=== PATIENT | male | born 1950 | race Caucasian/White ===

== ENCOUNTER → 2019-11-26 09:17 | Outpatient (BNVA) | payer OTHER, SELFPAY | PROVIDERS: Family Provider Internal Medicine; PCP Internal Medicine; Referring Provider Emergency Medicine Emergency Medical Services; Visit Provider Orthopaedic Surgery | DX: M25.561 Pain in right knee (principal); M25.562 Pain in left knee; M23.306 Other meniscus derangements, unspecified meniscus, right knee; M23.307 Other meniscus derangements, unspecified meniscus, left knee | CPT/HCPCS: 73560; 73565 ==

== ENCOUNTER → 2019-12-16 15:02 | Outpatient (BNVA) | payer OTHER, SELFPAY | PROVIDERS: Family Provider Internal Medicine; PCP Internal Medicine; Referring Provider Emergency Medicine Emergency Medical Services; Visit Provider Podiatrist Foot & Ankle Surgery | DX: M79.672 Pain in left foot (principal); M20.12 Hallux valgus (acquired), left foot | CPT/HCPCS: 73630 ==

== ENCOUNTER 2019-12-16 15:47 | Outpatient (CLI) | payer OTHER, SELFPAY | END 2019-12-16 15:48 | disposition home or self-care (01) | LOC: SPT 15:47 | PROVIDERS: Family Provider Internal Medicine; PCP Internal Medicine; Visit Provider Podiatrist Foot & Ankle Surgery | DX: Z46.89 Encounter for fitting and adjustment of other specified devices (principal); M79.672 Pain in left foot | CPT/HCPCS: 97760; L4397 ==

== ENCOUNTER → 2019-12-28 13:13 | Outpatient (BNVA) | payer OTHER, SELFPAY | PROVIDERS: Family Provider Internal Medicine; PCP Internal Medicine; Referring Provider Orthopaedic Surgery; Visit Provider Nurse Practitioner Family | DX: R35.1 Nocturia (principal); R39.9 Unspecified symptoms and signs involving the genitourinary system; Z12.5 Encounter for screening for malignant neoplasm of prostate | CPT/HCPCS: 81001 ==

== ENCOUNTER 2020-02-05 06:00 | Outpatient (RCR) | payer OTHER, SELFPAY | END 2020-02-22 23:59 | disposition home or self-care (01) | LOC: SPT 06:00 | PROVIDERS: PCP Internal Medicine; Visit Provider Podiatrist Foot & Ankle Surgery | DX: M76.62 Achilles tendinitis, left leg (principal) | CPT/HCPCS: 97035; 97140; 97161 ==

== ENCOUNTER 2020-02-23 06:00 | Outpatient (RCR) | payer OTHER, SELFPAY | END 2020-03-04 23:00 | disposition home or self-care (01) | LOC: SPT 06:00 | PROVIDERS: PCP Internal Medicine; Visit Provider Podiatrist Foot & Ankle Surgery | DX: M76.62 Achilles tendinitis, left leg (principal) | CPT/HCPCS: 97035; 97140 ==

== ENCOUNTER → 2020-03-04 08:53 | Outpatient (BNVA) | payer OTHER, SELFPAY | PROVIDERS: PCP Internal Medicine; Visit Provider Internal Medicine | DX: Z11.59 Encounter for screening for other viral diseases (principal) | CPT/HCPCS: 87635 ==

== ENCOUNTER 2020-03-07 09:53 | Observation (INO) | payer OTHER, SELFPAY ==
[2020-03-04 09:52] VITALS: BMI 39.9
--- NOTE | 2020-03-04 09:58 | ECG_ITS ---
[facility] Test Date: 2020-03-04 Pat Name: Reggie Smith Department: Room: Gender: Male Health Care / Medical Job Titles: : 1950 Requested By: Ruth Stone Order Number: [id number] Dayo MD: Chester Hernandez M.D. Measurements Intervals [place] Rate: 108 P: 30 NC: 146 QRS: 24 QRSD: 106 T: 7 QT: 326 QTc: 437 Interpretive Statements SINUS TACHYCARDIA POSSIBLE LEFT ATRIAL ENLARGEMENT [-0.1mV P WAVE IN V1/V2] ABNORMAL RHYTHM ECG Compared to ECG 05/02/2018 17:00:33 Myocardial infarct finding no longer present Electronically Signed On 03-04-2020 15:05:45 CDT by Chester Hernandez M.D. [id number]
--- NOTE | 2020-03-04 10:14 | ANES.PREANE2 ---
Pre-Anesthetic Assessment Pre-Anesthetic Assessment: Height/Weight: Height 1.83 m Weight 133.356 kg Preop Diagnosis: left knee pain Proposed Procedure: Operation Date: 03/07/20 07:00 Proposed Procedures p Total Knee Arthroplasty 71469 M17.0(Left) - Blaise Cronin MD Familial anesthetic complications: none Was Beta Jeannine taken within 24 hours: N/A Social: Social History: No alcohol and No tobacco Exam: Pre-Anes Outpt Exam: alert, oriented x 3, clear to auscultation bilaterally and regular rate & rhythm Airway: Submandibular: WNL Cervical ROM: WNL MP: 2 Dentition: False Pulmonary: Pulmonary: None reported CV/HEM: CV/HEM: CAD ([place] angioplasty 4 years ago. Pt denies any symptoms since), CHF and HTN Comments: Pt seen Dr Roca last month for cardiac clearance : : None reported Hepatic: Hepatic: None reported GI: GI: None reported Metabolic: Metabolic: None reported Musc/skel: Musc/skel: OA/DJD Neuropsych: Neuropsych: None reported Anesthetic Plan: ASA status: 3 Anesthesia: Anesthesia Evaluation, Eval. for regional block (SAB), General and Regional (specify below) Risk of > 500 ml blood loss (7ml/kg in children): Yes, adequate IV access and fluids planned PFSH Anesthesia PFSH: Medical History Bilateral knee pain Diastolic heart failure History of non-ST elevation myocardial infarction (NSTEMI) HTN (hypertension) Hyperlipidemia Nocturia Social History Smoking and tobacco status: former smoker Alcohol intake: unknown Adopted: No Caregiver/support person: No Lives independently: No Household members: spouse Marital status: Current occupational status: retired History of recent travel: No Data Anesthesia CBC & Chem 7: 03/04/20 10:08 03/04/20 10:08 Cardiac Studies: No Data to Display
[2020-03-04 10:27] LABS: Basophils # 0.1 10^3/uL (0.0-0.1); Eosinophils # 0.2 10^3/uL (0.0-0.8); Eosinophils % 1.9 %; Hematocrit 49.2 % (42.0-52.0); Hemoglobin 15.7 g/dL (11.7-16.6); Lymphocytes # 2.1 10^3/uL (0.8-4.8); Lymphocytes % 25.4 %; Mean Corpuscular HGB Conc 31.9 g/dL (30.0-36.0); Mean Corpuscular Hemoglobin 29.6 pg (28.0-34.0); Mean Corpuscular Volume 92.7 fL (80-94); Mean Platelet Volume 9.2 fL (7.4-10.4); Monocytes # 1.2 10^3/uL (0.2-0.9); Monocytes % 14.6 %; Neutrophils # 4.58 10^3/uL (1.8-7.7); Neutrophils % 56.6 %; Nucleated Red Blood Cells % 0 %; Platelet Count 250 10^3/cmm (130-400); Red Blood Count 5.31 10^6/uL (4.1-5.3); Red Cell Distribution Width 14.2 % (12.1-15.1); White Blood Count 8.1 10^3/uL (4.0-10.0)
[2020-03-04 10:56] LABS: Anion Gap 16.3 (5-19); Blood Urea Nitrogen 21 mg/dL (8-23); Carbon Dioxide 22 mmol/L (22-29); Chloride 106 mmol/L (98-107); Glucose 96 mg/dL (65-115); Osmolality Calculated 286 mOsm/kg (285-295); Potassium 4.3 mmol/L (3.5-5.1); Sodium 140 mmol/L (136-145)
[2020-03-07] VITALS (17 sets, daily range): BP systolic 92–148; BP diastolic 62–105; PULSE 73–106; RESP 11–31; TEMP 34.4–36.5; O2SAT 92–98
[2020-03-07] MEDS: sodium chloride 0.9% 1,000 ML 30 ML IV (06:09)
--- NOTE | 2020-03-07 06:32 | P.ANESUD_ITS ---
Pre-Anesthetic Update Pre-Anesthetic Assessment: Date of Surgery/Procedure: 03/07/20 Preop Megha gnosis: left knee pain Proposed Procedure: Operation Date: 03/07/20 07:00 Proposed Procedures p Total Knee Arthroplasty 62592 M17.0(Left) - Blaise Cronin MD Any changes to Pre-Anesthetic Assessment?: No Changes from Pre-Anesthetic Assessment: off plavix since last saturday (8 days) Last Intake: Intake Last Liquid Date 03/06/20 Last Liquid Time 21:00 Last Solid Date 03/06/20 Last Solid Time 21:00 Vitals: Temperature 97.7 F 03/07/20 05:49 Temperature Source Temporal Artery S can 03/07/20 05:49 Pulse Rate 106 H 03/07/20 05:49 Respiratory Rate 18 03/07/20 05:49 Blood Pressure 147/105 03/07/20 05:49 Blood Pressure Nga n 119 03/07/20 05:49 Pulse Oximetry 97 03/07/20 05:49 Oxygen Delivery Me thod 03/07/20 05:49 Exam: Pre-Anes Outpt Exam: alert, oriented x 3, clear to auscultation bilaterally and regular rate & rhythm Other Pertinent Information: Other Pertinent Information: patient ok with spinal Cardiac Studies: No Data to Display
--- NOTE | 2020-03-07 06:34 | ANES.PROC ---
Anesthesia Procedures Procedure/Date: 03/07/20 Nerve Block ^: Nerve Block 1: Main Anesthesia: general anesthesia Time Out Performed: Yes Consent: requested by attending/covering physician, from patient, risks and benefits reviewed and patient agrees to proceed Nerve block location: adductor canal (L) Anesthesia monitors applied: pulse oximetry, EKG and oxygen Nerve block position: supine Anesthetic Used: ropivicaine 0.5% and with decadron (4 mg) Amount of anesthesia used (mL): 30 Ultrasound used to: recognize landmarks Interscalene/Femoral BLK: 4 stimuplex 21 g needle used for position and inplane approach, visualize local anesthetic spread and no vascular puncture identified Injection: neg aspiration of heme and paresthesia +/- Patient Tolerated Procedure: well and no complications Complications: none
[2020-03-07] MEDS: midazolam 1 mg/mL INJ 2 mL 2 MG IVP (06:35)
--- NOTE | 2020-03-07 07:11 | W.PM.OPSFHP ---
Same Day Surgery H&P Indication for Procedure/HPI DATE OF PROCEDURE: March 07, 2020 CHIEF COMPLAINT/INDICATIONFOR SURGICAL PROCEDURE: Osteoarthritis left knee PREOP DIAGNOSIS: left knee pain PLANNED PROCEDRUE: Operation Date: 03/07/20 07:00 Proposed Procedures p Total Knee Arthroplasty 48013 M17.0(Left) - Blaise Cronin MD Medications/Allergies* Home Medications Medication Instructions Recorded Confirmed Type aspirin 325 mg tablet 325 mg PO DAILY 10/21/19 03/07/20 History clopidogrel 75 mg tablet 75 mg PO DAILY 10/21/19 03/04/20 History furosemide 20 mg tablet 20 mg PO DAILY 10/21/19 03/07/20 History potassium chloride 20 mEq 10 meq PO DAILY tab 10/21/19 03/07/20 History tablet,extended release pravastatin 20 mg tablet 20 mg PO DAILY 10/21/19 03/07/20 History Allergies/Adverse Reactions Allergy/AdvReac Type Severity Reaction Status Date / Time No Known Allergies Allergy Verified 03/07/20 05:45 Current Medications: Generic Name Dose Route Start Last Admin Trade Name Freq PRN Reason Stop Dose Admin Sodium Chloride 1,000 mls @ 30 mls/hr 03/07/20 05:45 03/07/20 06:09 Sodium Chloride 0.9% IV 03/08/20 05:44 30 mls/hr .Q24H SONI Administration Midazolam HCl 2 mg 03/07/20 05:32 03/07/20 06:25 Versed IVP 1 mg Q5M PRN Administration Preop Anxiety Pertinent History/Comorbid Conditions* Medical History (Updated 12/28/19 @ 20:54 by Sol Garcia APRN) Bilateral knee pain Diastolic heart failure History of non-ST elevation myocardial infarction (NSTEMI) HTN (hypertension) Hyperlipidemia Nocturia Social History Smoking and tobacco status: former smoker Alcohol intake: unknown Adopted: No Caregiver/support person: No Lives independently: No Household members: spouse Marital status: Current occupational status: retired History of recent travel: No Pertinent Exam Findings alert, oriented x 3 and clear to auscultation bilaterally Recommendations Surgery/Procedure today Coding Level of Care Code Acute 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
[2020-03-07] MEDS: ketorolac 30 mg/mL INJ IM (08:10)
[2020-03-07] MEDS: EPINEPHrine 1 mg/mL INJ XX (08:11)
[2020-03-07] MEDS: tranexamic acid 1,000 mg/10mL SDV 1000 MG IRRIGATION (08:11)
--- NOTE | 2020-03-07 09:39 | PM.OP ---
Operative Report Date of procedure: March 07, 2020 Pre-op Diagnosis: left knee pain Post-op diagnosis: same Post-op Findings: Same Procedure Done: Left total knee Implants: iathalon cruciate retaining femoral component 2) Size 5 Tritanium tibial component 3) 35 mm /10 mm thickness Tritanium asymetric patella 4) Size 5/13 mm thickness CR tibial bearing insert Pathology: none sent Surgeon: Blaise Cronin Anesthesia: General (Adductor canal) and Nerve Block (Spinal) Estimated blood loss (mL): 200 Findings: Patient eburnated bone over the medial femoral condyle medial tibial plateau patella and trochlea Condition: stable Disposition: PACU Procedure: The patient was taken to the operating room. Patient was given 1 g of tranexamic acid . The above anesthesia provided by the anesthesia service. A timeout was performed. The patient was prepped and draped in the usual fashion with the lower extremity exposed. A anterior incision was made, midline, from a point proximal to the patella to the distal tibial tubercle. The knee was entered through a medial parapatellar approach. The patella could be displaced laterally and the knee flexed. The patellar fat pad was resected to provide better visibility. Retractors were placed medially and laterally adjacent to the tibial plateau. The femoral canal was drilled in line with the longitudinal axis of the femur. Intramedullary femoral guide for used to make a distal femoral cut in 5 degrees of valgus, resecting 8 mm from the more prominent condyle. Next the extra medullary tibial guide was placed in alignment with the longitudinal axis of the tibia. The cutting guides were set to remove just over 9 mm from the high tibial plateau. The proximal tibia was then cut. The femoral measuring guide was then placed over the distal femur. Rotation was verified checking the relationship of the guide to the condyle and the trochlear groove. The femur was measured and cut for the desired femoral component. The desired tibial baseplate was then chosen. A trial reduction with the femur tibial baseplate and polyethylene was done, assuring that the knee was stable throughout full motion. Ligament balancing nothing more than a release of the deep medial collateral ligament.The tibia was prepared for the tibial baseplate. Patellar thickness was then measured. The patella was cut removing articular cartilage and prepared for appropriate size patellar button. All surfaces were cleaned with pulsatile lavage. The femur tibia and patella were then press-fit into place. The posterior capsule and collateral ligaments were then injected with a solution of 100 mL of 0.2% ropivacaine, 1 mL of a 1:1000 epinephrine solution, and 30 mg of Toradol. Final polyethylene component was then snapped into place into the tibia. 2 grams of tranexamic acid were applied to the wound. The tourniquet was deflated. The tranxanemic acid was left contact with the knee for 5 minutes before the knee was irrigated with saline. The extensor retinaculum was closed with 1 Ethibond. The subcutaneous tissues were closed with 2-0 Vicryl and the skin was closed with skin yasir. A compressive dressing was applied. The patient was taken to recovery room in stable condition. PurpleTeal total knee arthroplasty components were used includin) Size 5 triathalon cruciate retaining femoral component 2) Size 5 Tritanium tibial component 3) 35 mm /10 mm thickness Tritanium asymetric patella 4) Size 5/13 mm thickness CR tibial bearing insert
--- NOTE | 2020-03-07 09:46 | SUR.PHASEI ---
0943 PATIENT TO PACU FROM OR. RR EVEN AND UNLABORED. DRESSING INTACT TO LEFT KNEE, CDI. LEFT PEDAL PULSE MARKED. TRUJILLO CATH IN PLACE.
--- NOTE | 2020-03-07 10:01 | XR_ITS ---
WS: [id number] EXAM: LEFT KNEE: 2 VIEWS DATE OF EXAMINATION: 03/07/2020, 0957 hours COMPARISON: Left knee examination from 11/17/2008 and AP examination from 11/26/2019 HISTORY: Patient is 69 years old with new left knee replacement. FINDINGS: Since the earlier examination there has been interval placement of a 3 component noncemented knee art hroplasty. Slight undercutting of the anterior distal cortex noted. No hardware malalignment is seen. Air in the soft tissues correlates with an open procedure. Midline skin yasir are seen anteriorly. XR/XR knee LT 1-2V 49568 IMPRESSION: New noncemented left total knee arthroplasty. No acute bone abnormality or hard morris complication. No malalignment.
--- NOTE | 2020-03-07 10:15 | PM.PACU ---
PACU note Post-Anesthesia Exam: awake and vital signs stable Disposition: admitted
--- NOTE | 2020-03-07 10:29 | SUR.PHASEI ---
1018 PATIENT TO MED SURG. DENIES PAIN. DRESSING INTACT TO LEFT KNEE WITH FIRST ICE IN PLACE.
[2020-03-07] MEDS: sodium chloride 0.9% 1,000 ML 100 ML IV ×2 (10:50→22:27)
[2020-03-07] MEDS: CELEcoxib 200 mg Capsule PO ×2 (10:55→22:28)
--- NOTE | 2020-03-07 11:35 | PC.NURSE ---
Report recieved from Ruth BARRERA
--- NOTE | 2020-03-07 12:37 | PC.NURSE ---
Patient up to chair for lunch.
[2020-03-07] MEDS: chlorhexidine gluconate 0.12% Btl 473 mL 30 ML MUCOUS MEM ×3 (13:30→22:00)
[2020-03-07] MEDS: sennosides-docusate Tablet 2 TAB PO (18:25)
[2020-03-08] VITALS (8 sets, daily range): BP systolic 117–148; BP diastolic 76–97; PULSE 16–106; RESP 16–106; TEMP 36.6–37.2; O2SAT 94–99
[2020-03-08 06:23] LABS: Hemoglobin 12.8 g/dL (11.7-16.6)
--- NOTE | 2020-03-08 08:03 | PC.NURSE ---
I reported the high bp to the nurse Riana Pantoja 145/95
[2020-03-08] MEDS: potassium chloride ER 10 mEq Tablet PO (08:15)
[2020-03-08] MEDS: atorvastatin 40 mg Tablet 20 MG PO (08:15)
[2020-03-08] MEDS: clopidogrel 75 mg Tablet PO (08:15)
[2020-03-08] MEDS: FUROsemide 20 mg Tablet PO (08:16)
[2020-03-08] MEDS: aspirin 325 mg Tablet PO (08:16)
[2020-03-08] MEDS: sennosides-docusate Tablet 2 TAB PO (08:17)
[2020-03-08] MEDS: chlorhexidine gluconate 0.12% Btl 473 mL 30 ML MUCOUS MEM ×2 (08:17→12:21)
[2020-03-08] MEDS: mupirocin oint 22 gm 1 APPLIC NASAL (08:17)
[2020-03-08] MEDS: CELEcoxib 200 mg Capsule PO (12:21)
[2020-03-08] MEDS: oxyCODONE 5 mg IR Tab/Cap PO ×2 (12:24→18:09)
--- NOTE | 2020-03-08 12:53 | P.ANESPOST_ITS ---
Inpatient post-anesthesia follow up: Airway intact: Yes Vital signs: Temperature 99.0 F Pulse Rate 104 Respiratory Rate 18 Blood Pressure 117/76 Pulse Oximetry 99 Oxygen Delivery Me thod Room Air Oxygen Flow Rate 8 Fraction of Inspir ed Oxygen Hydration adequate: Yes Nausea and vomiting: No Pain level: 8 Pain l evel: patient just moved to bed Mental status: Baseline Additional Comments: Nerve block worked well for patient
--- NOTE | 2020-03-08 14:42 | P.DS_ITS ---
Discharge Providers Date of Admission: 03/07/20 09:53 Date of Discharge: March 08, 2020 Attending Provider at Admission: Blaise Cronin MD Attending Provider at Discharge: Blaise Cronin MD Primary Care Provider: Ortiz Sotelo Diagnoses at Discharge Discharge Diagnosis (1) Status post left knee replacement: Status: Acute (2) Osteoarthritis of left knee: Status: Acute Reason for Visit Reason for Visit: Primaty osteoarthritis of bilateral knee Hospital Course Hospital Course: The patient tolerated surgery well. They remained hemodynamically stable. They was begun on aspirin and sequential compression devices for DVT prophylaxis. The patient was mobilized with therapy beginning the day of surgery and by the first postoperative day independent with the walker. As the pain was adequately controlled and they were fully mobile they were discharged home. Physical Exam Narrative: EXAM NARRATIVE: On the day of discharge his knee incision was clean. They had no drainage. There is minimal swelling in the thigh and knee and the calf. No distal neurovascular deficits were noted Urinary Catheter Management^: F: Cath Placed During This Visit: yes, but has since been removed by the nurse Reason for Continuing Indwelling Catheter: Decision to DC Catheter Urinary Catheter Date of Insertion: 03/07/20 Urinary Catheter Time of Insertion: 07:45 Date Urinary Catheter Removed: 03/08/20 Time Urinary Catheter Discontinued: 06:30 Discharge Data Data Completed and Pending: Completed Studies During Hospitalization Category Date Time Status XR knee LT 1-2V 7 3560 Routine Exams 03/07/20 10:01 Completed Labs from last 24 hours 03/08/20 05:46 Hgb 12.8 Vitals: Last Vital Signs Temp 99.0 F 03/08/20 11:43 Pulse 104 H 03/08/20 11:43 Resp 18 03/08/20 12:24 BP 117/76 03/08/20 11:43 Pulse Ox 99 03/08/20 11:43 Discharge Plan Discharge Patient Disposition: Home Condition: Stable Prescriptions: New oxycodone 5 mg Tablet 5 mg PO Q4H PRN (Reason: Moderate Pain) Qty: 30 RF: 0 celecoxib 200 mg Capsule 200 mg PO Q12H Qty: 30 RF: 0 Continued furosemide [Lasix] 20 mg tablet 20 mg PO DAILY RF: 0 potassium chloride 20 mEq tablet extended release 10 meq PO DAILY RF: 0 aspirin 325 mg tablet 325 mg PO DAILY RF: 0 clopidogrel 75 mg tablet 75 mg PO DAILY RF: 0 pravastatin 20 mg tablet 20 mg PO DAILY RF: 0 (DME) Night Splint See Rx Instructions .Route .MEDSUPPLY Qty: 1 RF: 0 mupirocin 2 % ointment 1 applic TOPICAL BID Qty: 22 RF: 0 Tylenol 325 mg Tablet 650 mg PO QID PRN (Reason: Pain) RF: 0 guaifenesin 400 mg Tablet 400 mg PO Q4H PRN (Reason: unknown) RF: 0 Other Ambulatory Orders: DME: Walker (Order) Location: None Selected Ordered By: Blaise Cronin Physical Therapy Eval and Treat Outpatient (Order) Timeframe: 1 Week Facility: [facility] - Location: Physical Therapy Ordered By: Blaise Cronin Referrals: [facility] [Other] - 03/15/20 3:00 pm (Be there at 2:30pm to complete paperwork. They said not to be there any earlier, Appt will start at 3:00pm.) Blaise Cronin MD [Physician] - 03/22/20 1:15 pm Discharge Diet: Advance as tolerated Discharge Activity: Limit activity as instructed Activity Restrictions/Additional Instructions: May shower once incisions completely free of drainage. Discontinue knee dressing in 24-48 hours. Replaced dressings as needed. Take Celebrex twice a day for the next 15 days for pain , discontinue other anti-inflammatories take oxycodone for breakthrough pain. Exercises per outpatient physical therapy. 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
== END 2020-03-08 18:20 | disposition home or self-care (01) ==
LOC: MEDSURG 09:53
PROVIDERS: Anesthesiology; Admitting Provider Orthopaedic Surgery; PCP Internal Medicine; Visit Provider Orthopaedic Surgery
PROC: (CPT 27447; principal; 2020-03-07 07:00)
DX: M17.12 Unilateral primary osteoarthritis, left knee (principal); I11.0 Hypertensive heart disease with heart failure; I50.30 Unspecified diastolic (congestive) heart failure; E78.5 Hyperlipidemia, unspecified; I25.2 Old myocardial infarction; Z79.82 Long term (current) use of aspirin; Z87.891 Personal history of nicotine dependence
CPT/HCPCS: 27447; 12345; 36415; 36592; 51702; 73560; 80048; 85018; 85025; 93005; 96361; 96365; 96374; 97110; 97116; 97161; 97165; 97530; C1776; G0378; J0171; J0690; J1100; J1580; J1885; J2250; J2274; J2370; J2704; J2795; J7030

== ENCOUNTER 2020-03-15 14:29 | Outpatient (RCR) | payer OTHER, SELFPAY | END 2020-03-23 23:59 | disposition home or self-care (01) | LOC: SPT 14:29 | PROVIDERS: PCP Internal Medicine; Referring Provider Orthopaedic Surgery; Visit Provider Orthopaedic Surgery | DX: Z47.1 Aftercare following joint replacement surgery (principal); Z96.652 Presence of left artificial knee joint | CPT/HCPCS: 97110; 97161 ==

== ENCOUNTER 2020-03-24 06:00 | Outpatient (RCR) | payer OTHER, SELFPAY | END 2020-04-23 23:59 | disposition home or self-care (01) | LOC: SPT 06:00 | PROVIDERS: PCP Internal Medicine; Referring Provider Orthopaedic Surgery; Visit Provider Orthopaedic Surgery | DX: Z47.1 Aftercare following joint replacement surgery (principal); Z96.652 Presence of left artificial knee joint | CPT/HCPCS: 97110 ==

== ENCOUNTER → 2020-04-20 13:00 | Outpatient (BNVA) | payer OTHER, SELFPAY | PROVIDERS: PCP Internal Medicine; Visit Provider Orthopaedic Surgery | DX: Z96.652 Presence of left artificial knee joint (principal) | CPT/HCPCS: 73560; 73565 ==

== ENCOUNTER → 2020-04-22 10:32 | Outpatient (BNVA) | payer OTHER, SELFPAY | PROVIDERS: PCP Internal Medicine; Visit Provider Orthopaedic Surgery | DX: Z96.652 Presence of left artificial knee joint (principal) | CPT/HCPCS: 87635 ==

== ENCOUNTER 2020-04-28 08:40 | Day surgery (SDC) | payer OTHER, SELFPAY ==
[2020-04-27 13:17] VITALS: BMI 40.0
[2020-04-28] VITALS (7 sets, daily range): BP systolic 127–152; BP diastolic 90–108; PULSE 81–106; RESP 12–20; TEMP 36.2–36.4; O2SAT 95–99
[2020-04-28] MEDS: sodium chloride 0.9% 1,000 ML 30 ML IV (09:16)
--- NOTE | 2020-04-28 09:23 | ANES.PREANE2 ---
Pre-Anesthetic Assessment Pre-Anesthetic Assessment: Height/Weight: Height 1.83 m Weight 133.81 kg Temp Pulse Resp BP Pulse Ox 97.2 F L 106 H 18 127/94 99 04/28/20 09:05 04/28/20 09:05 04/28/20 09:05 04/28/20 09:05 04/28/20 09:05 Preop Diagnosis: djd L knee Proposed Procedure: Operation Date: 04/28/20 10:10 Proposed Procedures p repair extensor retinaculm left knee 40191 Z96.652(Left) - Blaise Cronin MD Familial anesthetic complications: None Was Beta Jeannine taken within 24 hours: N/A Last intake: Intake Last Liquid Date 04/27/20 Last Liquid Time 20:00 Last Solid Date 04/27/20 Last Solid Time 20:00 Social: Social History: No alcohol and No tobacco Exam: Pre-Anes Outpt Exam: alert, oriented x 3, clear to auscultation bilaterally and regular rate & rhythm Airway: Cervical ROM: WNL Dentition: False CV/HEM: CV/HEM: CAD (stents 4 years ago), CHF (diastolic) and HTN Comments: EKG 03/04 - SInus tachy Metabolic: Metabolic: Hyperlipidemia Anesthetic Plan: ASA status: 3 Risk of > 500 ml blood loss (7ml/kg in children): No Meds/Allergies Current Medications: Current Medications Generic Name Dose Route Start Last Admin Trade Name Freq PRN Reason Stop Dose Admin Sodium Chloride 1,000 mls @ 30 ml s/hr 04/28/20 07:15 04/28/20 09:16 Sodium Chloride 0.9% IV 04/29/20 07:14 30 mls/hr .Q24H SONI Administration PFSH Anesthesia PFSH: Medical History Bilateral knee pain Diastolic heart failure History of non-ST elevation myocardial infarction (NSTEMI) HTN (hypertension) Hyperlipidemia Nocturia Social History Smoking and tobacco status: former smoker Alcohol intake: unknown Adopted: No Caregiver/support person: No Lives independently: No Household members: spouse Marital status: Current occupational status: retired History of recent travel: No Data Anesthesia Cardiac Studies: No Data to Display
--- NOTE | 2020-04-28 10:52 | W.PM.OPSUD ---
Surgery/Procedure H&P Update DATE OF PROCEDURE: April 28, 2020 DATE H&P PERFORMED: 04/20/20 PREOP DIAGNOSIS: djd L knee PLANNED PROCEDURE: Operation Date: 04/28/20 10:10 Proposed Procedures p repair extensor retinaculm left knee 38525 Z96.652(Left) - Blaise Cronin MD
--- NOTE | 2020-04-28 11:57 | PM.OP ---
Operative Report Date of procedure: April 28, 2020 Pre-op Diagnosis: Left patellofemoral instability, status post left total knee arthroplasty Post-op diagnosis: same Post-op Findings: Medial retinaculum tear left knee Procedure Done: Repair medial retinaculum left knee Pathology: none sent Surgeon: Blaise Cronin Anesthesia: General Estimated blood loss (mL): 25 Tourniquet time (min): 33 Complications: None Findings: The patient had failure of the repair of his medial retinaculum from approximately 4 cm above the patella extending to the inferior pole of the patella. The total knee components appeared stable. Nothing to suggest infection was identified Condition: stable Procedure: Reggie was taken to the operating room and given 2 g of Ancef. He was given a general anesthesia and positioned supine on the OR table with his left leg exposed. He was prepped and draped in the usual fashion. A timeout was performed. The central 10 cm was opened with a scalpel blade bringing us down to the anterior patella. Dissection was working medial to the patella revealing the complete disruption of the retinaculum noted above. The medial retinaculum was dissected free of the subcutaneous tissues. Old sutures were removed and the edges were freshened with a scalpel blade. The knee was irrigated with saline. The extensor retinaculum was closed with interrupted 1 Ethibond sutures removed from distal to proximal. Overall tendon quality was excellent. Subcutaneous tissues were closed with 2-0 Vicryl and the skin was closed with skin yasir. Sterile dressings were applied. The patient was extubated and taken to recovery room in stable condition.
[2020-04-28] MEDS: oxyCODONE 5 mg IR Tab/Cap PO (12:37)
--- NOTE | 2020-04-28 13:40 | ANE.PACU2 ---
Inpatient post-anesthesia follow up: Airway intact: Yes Vital signs: Temperature 97.6 F Pulse Rate 81 Respiratory Rate 18 Blood Pressure 152/104 Pulse Oximetry 95 Oxygen Delivery Me thod Room Air Oxygen Flow Rate 6 Fraction of Inspir ed Oxygen Hydration adequate: Yes Nausea and vomiting: No Pain level: 3 Mental status: Baseline
== END 2020-04-28 14:05 | disposition home or self-care (01) ==
PROVIDERS: PCP Internal Medicine; Visit Provider Orthopaedic Surgery
PROC: (CPT 27380; principal; 2020-04-28 10:10)
DX: M23.52 Chronic instability of knee, left knee (principal); Z96.652 Presence of left artificial knee joint; I25.10 Atherosclerotic heart disease of native coronary artery without angina pectoris; Z95.5 Presence of coronary angioplasty implant and graft; I11.0 Hypertensive heart disease with heart failure; I50.30 Unspecified diastolic (congestive) heart failure; E78.5 Hyperlipidemia, unspecified; Z87.891 Personal history of nicotine dependence; Z79.82 Long term (current) use of aspirin
CPT/HCPCS: 27380; 12345; J0690; J2270; J2370; J2405; J2704; J3010; J3490; J7030

== ENCOUNTER 2020-05-03 11:28 | Outpatient (CLI) | payer OTHER, SELFPAY ==
--- NOTE | 2020-05-03 11:32 | USCV_ITS ---
Reggie Smith Age: 69 Gender: M : 1950 Exam Date: 05/03/2020 11:39 Ordering Phys: Blaise Cronin MD Technologist: Gerri Melendez Exam Location: [facility] [place] Indication: Pain swelling post surgery HISTORY: Status post knee replacement. PROCEDURES: Venous duplex imaging was performed in only the left lower extremity. The following venous structures were evaluated: common femoral vein, profunda vein, proximal portion of the greater saphenous vein, superficial femoral vein, and the popliteal vein. In addition, the posterior tibial and peroneal trunk were evaluated. Serial compression, augmentation maneuvers, and spectral Doppler flow evaluation were performed. FINDINGS: Normal 2-D Doppler and augmentation and compressibility throughout the lower extremity venous structures. Additional imaging through the proximal calf veins also reveals no thrombus. Limited evaluation of the greater saphenous vein is patent with no thrombus.. CONCLUSIONS No evidence of left lower extremity DVT. Severiano Wright MD (Electronically Signed) Final Date: 03 May 2020 15:57 S
== END 2020-05-03 11:29 | disposition home or self-care (01) ==
PROVIDERS: PCP Internal Medicine; Visit Provider Orthopaedic Surgery
DX: Z96.652 Presence of left artificial knee joint (principal); M79.89 Other specified soft tissue disorders; G89.18 Other acute postprocedural pain
CPT/HCPCS: 93971

== ENCOUNTER → 2020-07-13 09:46 | Outpatient (BNVA) | payer OTHER, SELFPAY | PROVIDERS: PCP Internal Medicine; Visit Provider Orthopaedic Surgery | DX: Z01.812 Encounter for preprocedural laboratory examination (principal); Z20.828 Contact with and (suspected) exposure to other viral communicable diseases | CPT/HCPCS: 87635 ==

== ENCOUNTER 2020-07-18 09:16 | Observation (INO) | payer OTHER, MEDICARE, SELFPAY ==
[2020-07-04 09:06] VITALS: BMI 40.0
[2020-07-04 09:38] LABS: Basophils # 0.1 10^3/uL (0.0-0.1); Basophils % 0.8 %; Eosinophils # 0.2 10^3/uL (0.0-0.8); Eosinophils % 2.1 %; Hematocrit 50.2 % (42.0-52.0); Hemoglobin 15.7 g/dL (11.7-16.6); Lymphocytes # 1.8 10^3/uL (0.8-4.8); Lymphocytes % 23.5 %; Mean Corpuscular HGB Conc 31.3 g/dL (30.0-36.0); Mean Corpuscular Hemoglobin 28.4 pg (28.0-34.0); Mean Corpuscular Volume 90.9 fL (80-94); Mean Platelet Volume 9.3 fL (7.4-10.4); Monocytes # 1.1 10^3/uL (0.2-0.9); Monocytes % 14.7 %; Neutrophils # 4.54 10^3/uL (1.8-7.7); Neutrophils % 58.3 %; Nucleated Red Blood Cells % 0 %; Platelet Count 272 10^3/cmm (130-400); Red Blood Count 5.52 10^6/uL (4.1-5.3); Red Cell Distribution Width 15.1 % (12.1-15.1); White Blood Count 7.8 10^3/uL (4.0-10.0)
[2020-07-04 09:56] LABS: Alanine Aminotransferase 10 U/L (0-41); Albumin Level 3.9 g/dL (3.5-5.2); Alkaline Phosphatase 69 IU/L (40-130); Blood Urea Nitrogen 16 mg/dL (8-23); Carbon Dioxide 23 mmol/L (22-29); Chloride 103 mmol/L (98-107); Glucose 83 mg/dL (65-115); Osmolality Calculated 284 mOsm/kg (285-295); Sodium 137 mmol/L (136-145); Total Bilirubin 0.4 mg/dL (0.15-1.2); Total Protein 6.9 g/dL (6.6-8.7)
[2020-07-04 10:08] LABS: Anion Gap 15.8 (5-19); Aspartate Amino Transferase 18 U/L (0-40); Potassium 4.8 mmol/L (3.5-5.1)
--- NOTE | 2020-07-04 11:09 | P.ANESASSM_ITS ---
Pre-Anesthetic Assessment Pre-Anesthetic Assessment: Height/Weight: Height 1.83 m Weight 133.81 kg Preop Diagnosis: Left patellofemoral instability, status post left total knee arthroplasty Proposed Procedure: Operation Date: 07/18/20 07:00 Proposed Procedures p right Total Knee Arthroplasty 17739 m17.11(Right) - Blaise Cronin MD Was Beta Jeannine taken within 24 hours: N/A Social: Social History: No alcohol and No tobacco Exam: Pre-Anes Outpt Exam: alert, oriented x 3, clear to auscultation bilaterally and regular rate & rhythm Airway: Submandibular: WNL Cervical ROM: WNL MP: 2 Dentition: False Pulmonary: Pulmonary: None reported CV/HEM: CV/HEM: CHF, HTN and DE : : None reported Hepatic: Hepatic: None reported GI: GI: None reported Metabolic: Metabolic: Morbid obesity Musc/skel: Musc/skel: OA/DJD Neuropsych: Neuropsych: None reported Anesthetic Plan: ASA status: 3 Anesthesia: Regional (specify below) Oth er: SAB/adductor blk Risk of > 500 ml blood loss (7ml/kg in children): No PFSH Anesthesia PFSH: Medical History Bilateral knee pain Diastolic heart failure History of non-ST elevation myocardial infarction (NSTEMI) HTN (hypertension) Hyperlipidemia Nocturia Social History Smoking and tobacco status: former smoker Alcohol intake: unknown Adopted: No Caregiver/support person: No Lives independently: No Household members: spouse Marital status: Current occupational status: retired History of recent travel: No Data Anesthesia CBC & Chem 7: 07/04/20 09:23 07/04/20 09:23 Other Labs: Laboratory Results - last 48 hr 07/04/20 07/04/20 09:23 09:23 WBC 7.8 RBC 5.52 H Hgb 15.7 Hct 50.2 MCV 90.9 MCH 28.4 MCHC 31.3 RDW 15.1 Plt Count 272 MPV 9.3 Neut % (Auto) 58.3 Lymph % (Auto) 23.5 [place] % (Auto) 14.7 Eos % (Auto) 2.1 Baso % (Auto) 0.8 Neut # (Auto) 4.54 Lymph # (Auto) 1.8 [place] # (Auto) 1.1 H Eos # (Auto) 0.2 Baso # (Auto) 0.1 Nucleated RBC % (auto) 0 Nucleated RBCs # 0.0 Sodium 137 Potassium 4.8 Chloride 103 Carbon Dioxide 23 Anion Gap 15.8 BUN 16 Creatinine 0.9 GFR Calculation Not Reportable Glucose 83 Calculated Osmolality 284 L Calcium 9.0 Total Bilirubin 0.4 AST 18 ALT 10 Alkaline Phosphatase 69 Total Protein 6.9 Albumin 3.9 Globulin 3.0 Cardiac Studies: No Data to Display
[2020-07-18] VITALS (16 sets, daily range): BP systolic 77–137; BP diastolic 45–100; PULSE 77–112; RESP 14–24; TEMP 36.1–37; O2SAT 93–98
[2020-07-18] MEDS: sodium chloride 0.9% 1,000 ML 30 ML IV (06:03)
[2020-07-18] MEDS: acetaminophen 500 mg Tablet 1000 MG PO ×3 (06:04→20:59)
[2020-07-18] MEDS: oxyCODONE 20 mg ER (12 HR) Tablet PO (06:05)
--- NOTE | 2020-07-18 06:41 | P.ANESUD_ITS ---
Pre-Anesthetic Update Pre-Anesthetic Assessment: Date of Surgery/Procedure: 07/18/20 Preop Megha gnosis: Osteoarthritis right knee Proposed Procedure: Operation Date: 07/18/20 07:00 Proposed Procedures p right Total Knee Arthroplasty 12014 m17.11(Right) - Blaise Cronin MD Any changes to Pre-Anesthetic Assessment?: No Last Intake: Intake Last Liquid Date 07/18/20 Last Liquid Time 05:00 Last Solid Date 07/17/20 Last Solid Time 18:00 Vitals: Temperature 97.4 F L 07/18/20 05:56 Temperature Source Temporal Artery S can 07/18/20 05:56 Pulse Rate 112 H 07/18/20 05:56 Respiratory Rate 18 07/18/20 05:56 Blood Pressure 137/100 07/18/20 05:56 Blood Pressure Nga n 112 07/18/20 05:56 Pulse Oximetry 98 07/18/20 05:56 Oxygen Delivery Me thod 07/18/20 05:56 Exam: Pre-Anes Outpt Exam: alert, oriented x 3, clear to auscultation bilaterally and regular rate & rhythm Cardiac Studies: No Data to Display
--- NOTE | 2020-07-18 07:03 | W.PM.OPSFHP ---
Same Day Surgery H&P Indication for Procedure/HPI DATE OF PROCEDURE: July 18, 2020 CHIEF COMPLAINT/INDICATIONFOR SURGICAL PROCEDURE: Osteoarthritis right knee here for total knee arthroplasty PREOP DIAGNOSIS: Osteoarthritis right knee PLANNED PROCEDRUE: Operation Date: 07/18/20 07:00 Proposed Procedures p right Total Knee Arthroplasty 66954 m17.11(Right) - Blaise Cronin MD Medications/Allergies* Home Medications Medication Instructions Recorded Confirmed Type aspirin 325 mg tablet 325 mg PO DAILY 10/21/19 07/18/20 History clopidogrel 75 mg tablet 75 mg PO DAILY 10/21/19 07/18/20 History furosemide 20 mg tablet 20 mg PO DAILY 10/21/19 07/18/20 History potassium chloride 20 mEq 10 meq PO DAILY tab 10/21/19 07/18/20 History tablet,extended release pravastatin 20 mg tablet 20 mg PO DAILY 10/21/19 07/04/20 History acetaminophen [Tylenol] 650 mg PO QID PRN 03/08/20 07/18/20 History guaifenesin 400 mg PO Q4H PRN 03/08/20 07/04/20 History Allergies/Adverse Reactions Allergy/AdvReac Type Severity Reaction Status Date / Time No Known Allergies Allergy Verified 07/04/20 09:00 Current Medications: Generic Name Dose Route Start Last Admin Trade Name Freq PRN Reason Stop Dose Admin Sodium Chloride 1,000 mls @ 30 mls/hr 07/18/20 05:30 07/18/20 06:03 Sodium Chloride 0.9% IV 07/19/20 05:29 30 mls/hr .Q24H SONI Administration Pertinent History/Comorbid Conditions* Medical History (Updated 06/14/20 @ 15:22 by Blaise Cronin MD) Bilateral knee pain Diastolic heart failure History of non-ST elevation myocardial infarction (NSTEMI) HTN (hypertension) Hyperlipidemia Nocturia Social History Smoking and tobacco status: former smoker Alcohol intake: unknown Adopted: No Caregiver/support person: No Lives independently: No Household members: spouse Marital status: Current occupational status: retired History of recent travel: No Pertinent Exam Findings alert, oriented x 3, clear to auscultation bilaterally, regular rate & rhythm and operative site marked Recommendations Surgery/Procedure today Coding Level of Care Code 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
--- NOTE | 2020-07-18 07:47 | ANES.PROC ---
Anesthesia Procedures Procedure/Date: 07/18/20 Nerve Block ^: Nerve Block 1: Main Anesthesia: spinal anesthesia block Time Out Performed: Yes Consent: requested by attending/covering physician, from patient, risks and benefits reviewed and patient agrees to proceed Nerve block location: adductor canal (right) Anesthesia monitors applied: pulse oximetry, EKG, BP cuff and oxygen Nerve block position: supine Anesthetic Used: ropivicaine 0.5% Amount of anesthesia used (mL): 20 Ultrasound used to: recognize landmarks Nerve Stimulator Used?: No Interscalene/Femoral BLK: 4 stimuplex 21 g needle used for position and inplane approach, visualize local anesthetic spread and no vascular puncture identified Injection: neg aspiration of heme Patient Tolerated Procedure: well and no complications Complications: none
[2020-07-18] MEDS: ketorolac 30 mg/mL INJ IM (08:10)
[2020-07-18] MEDS: EPINEPHrine 1 mg/mL INJ XX (08:10)
[2020-07-18] MEDS: tranexamic acid 1,000 mg/10mL SDV 1000 MG IRRIGATION (08:11)
--- NOTE | 2020-07-18 09:20 | PM.OP ---
Operative Report Date of procedure: July 18, 2020 Pre-op Diagnosis: Osteoarthritis right knee Post-op diagnosis: same Post-op Findings: Same Procedure Done: Right total knee arthroplasty Implants: [employer] total knee arthroplasty components were used includin) Size 6 triathalon cruciate retaining femoral component 2) Size 6 Tritanium tibial component 3) 35 mm /10 mm thickness Tritanium asymetric patella 4) Size 6/11 mm thickness CR tibial bearing insert Pathology: none sent Surgeon: Blaise Cronin Anesthesia: Nerve Block (Spinal, adductor canal block) Estimated blood loss (mL): 400 Complications: None Findings: The patient had eburnated bone in all 3 compartments of the knee with particular narrowing in the medial compartment Condition: stable Disposition: PACU Procedure: The patient was taken to the operating room. Patient was given 1 g of tranexamic acid . The above anesthesia provided by the anesthesia service. A timeout was performed. The patient was prepped and draped in the usual fashion with the lower extremity exposed. A anterior incision was made, midline, from a point proximal to the patella to the distal tibial tubercle. The knee was entered through a medial parapatellar approach. The patella could be displaced laterally and the knee flexed. The patellar fat pad was resected to provide better visibility. Retractors were placed medially and laterally adjacent to the tibial plateau. The femoral canal was drilled in line with the longitudinal axis of the femur. Intramedullary femoral guide for used to make a distal femoral cut in 5 degrees of valgus, resecting 8 mm from the more prominent condyle. Next the extra medullary tibial guide was placed in alignment with the longitudinal axis of the tibia. The cutting guides were set to remove just over 9 mm from the high tibial plateau. The proximal tibia was then cut. The femoral measuring guide was then placed over the distal femur. Rotation was verified checking the relationship of the guide to the condyle and the trochlear groove. The femur was measured and cut for the desired femoral component. The desired tibial baseplate was then chosen. A trial reduction with the femur tibial baseplate and polyethylene was done, assuring that the knee was stable throughout full motion. Ligament balancing involve nothing more than a release of the deep medial collateral ligament.The tibia was prepared for the tibial baseplate. Patellar thickness was then measured. The patella was cut removing articular cartilage and prepared for appropriate size patellar button. All surfaces were cleaned with pulsatile lavage. The femur tibia and patella were then press-fit into place. The posterior capsule and collateral ligaments were then injected with a solution of 100 mL of 0.2% ropivacaine, 1 mL of a 1:1000 epinephrine solution, and 30 mg of Toradol. Final polyethylene component was then snapped into place into the tibia. 2 grams of tranexamic acid were applied to the wound. The tourniquet was deflated. The tranxanemic acid was left contact with the knee for 3 minutes before the knee was irrigated with saline. The extensor retinaculum was closed with a running 1 Stratafix.. The subcutaneous tissues were closed with 2-0 Vicryl and the skin was closed with a running 3-0 Stratafix. The wound was covered with a Dermabond Prinio dressing. It was covered with 4xrs and a compressive Tubigauae was applied. The patient was taken to recovery room in stable condition.
--- NOTE | 2020-07-18 10:11 | XR_ITS ---
WS: [id number] Exam: XR knee RT 1-2V [id number] Date/Time of Exam: 07/18/2020 10:34 AM Reason For Exam: Right Total Knee arthroplasty Comparison 04/20/2020. A total right knee prosthesis is in place in excellent position. Postoperative changes in the adjacen t soft tissues. XR/XR knee RT 1-2V [id number] IMPRESSION: 1. Total knee prosthesis in place in excellent position.
[2020-07-18] MEDS: CELEcoxib 200 mg Capsule PO ×2 (10:33→20:53)
[2020-07-18] MEDS: sodium chloride 0.9% 1,000 ML 100 ML IV ×2 (10:33→21:05)
--- NOTE | 2020-07-18 13:22 | ANE.PACU2 ---
Inpatient post-anesthesia follow up: Airway intact: Yes Vital signs: Temperature 97.9 F Pulse Rate 90 Respiratory Rate 17 Blood Pressure 107/76 Pulse Oximetry 93 Oxygen Delivery Me thod Room Air Oxygen Flow Rate Fraction of Inspir ed Oxygen Hydration adequate: Yes Nausea and vomiting: No Pain level: 1 Mental status: Baseline
[2020-07-18] MEDS: gabapentin 300 mg Capsule PO (17:56)
[2020-07-18] MEDS: sennosides-docusate Tablet 2 TAB PO (17:56)
[2020-07-18] MEDS: mupirocin oint 22 gm 1 APPLIC TOPICAL (17:57)
[2020-07-18] MEDS: oxyCODONE 5 mg IR Tab/Cap 10 MG PO (20:54)
[2020-07-19] VITALS: BP 106/76; PULSE 96; RESP 19; TEMP 36.8; O2SAT 95
[2020-07-19 01:07] VITALS: RESP 18
[2020-07-19] MEDS: oxyCODONE 5 mg IR Tab/Cap 10 MG PO ×2 (01:07→08:26)
[2020-07-19 02:40] LABS: Hemoglobin 12.6 g/dL (11.7-16.6)
[2020-07-19 03:40] VITALS: RESP 18
[2020-07-19] MEDS: morphine 4 mg/mL SDV 1 mL 2 MG IVP (03:40)
[2020-07-19 04:00] VITALS: BP 125/85; PULSE 102; RESP 18; TEMP 36.7; O2SAT 94
[2020-07-19] MEDS: acetaminophen 500 mg Tablet 1000 MG PO (05:14)
[2020-07-19] MEDS: ondansetron 2 mg/ML SDV 2 mL 4 MG IVP (07:19)
[2020-07-19 08:00] VITALS: BP 117/82; PULSE 97; RESP 19; TEMP 37.3; O2SAT 96
[2020-07-19] MEDS: aspirin 325 mg Tablet PO (08:25)
[2020-07-19] MEDS: sennosides-docusate Tablet 2 TAB PO (08:26)
[2020-07-19] MEDS: atorvastatin 40 mg Tablet 20 MG PO (08:26)
[2020-07-19] MEDS: gabapentin 300 mg Capsule PO (08:27)
[2020-07-19] MEDS: FUROsemide 20 mg Tablet PO (08:27)
[2020-07-19] MEDS: clopidogrel 75 mg Tablet PO (08:27)
[2020-07-19] MEDS: potassium chloride ER 10 mEq Tablet PO (08:27)
--- NOTE | 2020-07-19 09:55 | PC.CHAP ---
Pastoral Care Encounter/Spiritual Assessment Type of Contact [] Declined strike plate attacher visit [] Patient/Family/Request visit [] Outpatient visit [] Follow-up visit [] Physician referral [] Code/Alert [x] Routine visit [] Staff referral [] Actively dying [] Patient sleeping [] Family support [] [] Out of room [] Palliative care [] [] Receiving care in room [] Pre-surgical visit [] Trauma [] Long length of stay [] ICU visit [] Other: Relational/Emotional Strength [x] Patient feels connected with others/family/visitors/staff [] Distress [] Loneliness/isolation [] Abandonment Spirituality of Patient [x] Person of Moni [x] Attends Mormon of their Moni [] Believes in Prayer [] Reads Bible or Amish materials [] There are Spiritual issues to be addressed Clinical Quality Manager Interventions [x] Prayer [x] Active listening [] Non-anxious presence [] Spiritual/emotional support [] Crisis/trauma care [] Spiritual counseling [] Bereavement support [] Provided bereavement packet [] Provided Bible/devotional materials [] Provided toy/stuffed animal, coloring book to patient or family member [] Provided Communion [] Anointing/Revelo [] Salvation [x] Completed spiritual assessment [] Other: Impact on Illness or Injury [] Angry [] Fearful [] Anxious [] Often cries [] Exhaustion [] Unable to work [] Unable to attend religion [] Unable to walk/stand [] Unable to read [] Unable to drive [] Unable to eat/drink [] Unable to sleep [] Unable to be with family [] Patient intubated [] Other: Summary patient very happy with doc and staff ready to go home Time spent with patient 15 min
--- NOTE | 2020-07-19 10:08 | PC.OT ---
OT EVALUATION ORDERS RECEIVED. OT EVALUATION ATTEMPTED; PATIENT IN PROCESS OF DISCHARGE. WAS ABLE TO DEMONSTRATE ABILITY TO REACH RIGHT LE. STATES THAT HE DRESSED HIMSELF THIS MORNING. NO FURTHER SKILLED OT REQUIRED.
[2020-07-19 10:42] VITALS: BP 117/82; PULSE 97; RESP 19; TEMP 37.3; O2SAT 96
--- NOTE | 2020-07-19 13:06 | PM.DCS ---
Discharge Providers Date of Admission: 07/18/20 09:16 Date of Discharge: July 19, 2020 Attending Provider at Admission: Blaise Cronin MD Attending Provider at Discharge: Blaise Cronin MD Primary Care Provider: Ortiz Sotelo Diagnoses at Discharge Discharge Diagnosis (1) Status post right knee replacement: Status: Acute (2) Osteoarthritis of right knee: Status: Resolved (3) Status post left knee replacement: Status: Acute Reason for Visit Reason for Visit: right total knee arthroplasty Hospital Course Hospital Course The patient was admitted to the hospital after elective right total knee arthroplasty. Postoperatively he did very well. By the first postoperative day he was independent with his walker. His pain was controlled with oral medications. He remained hemodynamically stable. He was managed with aspirin and foot pumps for DVT prophylaxis. He was discharged home that day Physical Exam Narrative: EXAM NARRATIVE: On the day of discharge his knee incision was clean. They had no drainage. There is minimal swelling in the thigh and knee and the calf. No distal neurovascular deficits were noted Urinary Catheter Management^: F: Cath Placed During This Visit: yes, but has since been removed by the nurse Reason for Continuing Indwelling Catheter: Required Immobilization for Trauma or Surgery or Anesthesia Urinary Catheter Date of Insertion: 07/18/20 Urinary Catheter Time of Insertion: 07:30 Date Urinary Catheter Removed: 07/19/20 Time Urinary Catheter Discontinued: 05:30 Discharge Data Data Completed and Pending: Completed Studies During Hospitalization Category Date Time Status XR knee RT 1-2V 7 [id number] Routine Exams 07/18/20 10:11 Completed Labs from last 24 hours 07/19/20 02:18 Hgb 12.6 Vitals: Last Vital Signs Temp 99.1 F 07/19/20 10:42 Pulse 97 07/19/20 10:42 Resp 19 H 07/19/20 10:42 BP 117/82 07/19/20 10:42 Pulse Ox 96 07/19/20 10:42 Discharge Plan Discharge Patient Disposition: Home Condition: Stable Prescriptions: New celecoxib 200 mg Capsule 200 mg PO Q12H 15 Days Qty: 30 RF: 0 gabapentin 300 mg Capsule 300 mg PO BID 7 Days Qty: 14 RF: 0 oxycodone 5 mg Tablet 10 mg PO Q4H PRN (Reason: Severe Pain) 7 Days Qty: 40 RF: 0 Continued furosemide [Lasix] 20 mg tablet 20 mg PO DAILY RF: 0 potassium chloride 20 mEq tablet extended release 10 meq PO DAILY RF: 0 aspirin 325 mg tablet 325 mg PO DAILY RF: 0 clopidogrel 75 mg tablet 75 mg PO DAILY RF: 0 pravastatin 20 mg tablet 20 mg PO DAILY RF: 0 (DME) Night Splint See Rx Instructions .Route .MEDSUPPLY Qty: 1 RF: 0 diclofenac sodium 1 % gel 2 gm TOPICAL QID Qty: 100 RF: 6 mupirocin 2 % ointment 1 applic topical BID Qty: 22 RF: 0 acetaminophen [Tylenol] 325 mg Tablet 650 mg PO QID PRN (Reason: Pain) RF: 0 guaifenesin 400 mg Tablet 400 mg PO Q4H PRN (Reason: Cold Symptoms) RF: 0 Discharge Orders: Discharge Order (Routine); Ordered 07/19/20 Ordered By: Blaise Cronin Referrals: Blaise Cronin MD [Physician] - 08/02/20 2:45 pm Patient Instructions: Gabapentin (By mouth), Oxycodone, Rapid Release (By mouth), Celecoxib (By mouth), Total Knee Replacement (DC) Activity Restrictions/Additional Instructions: Okay to shower. Keep Tubigauze sleeve in place for swelling. May remove for hygiene. Apply FirstIce up to 20 min/hr for pain and swelling Take Celebrex twice a day for the next 15 days for pain , discontinue other anti-inflammatories Take Neurontin twice a day for 7 days. Take Tylenol 325mg as usual as needed for pain take oxycodone for breakthrough pain. Exercises per physical therapy. 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
== END 2020-07-19 10:42 | disposition home or self-care (01) ==
LOC: MEDSURG 09:33
PROVIDERS: Anesthesiology; Admitting Provider Orthopaedic Surgery; PCP Internal Medicine; Visit Provider Orthopaedic Surgery
PROC: (CPT 27447; principal; 2020-07-18 07:00)
DX: M17.11 Unilateral primary osteoarthritis, right knee (principal); Z96.652 Presence of left artificial knee joint; I11.0 Hypertensive heart disease with heart failure; I50.30 Unspecified diastolic (congestive) heart failure; I25.2 Old myocardial infarction; E66.01 Morbid (severe) obesity due to excess calories; Z68.41 Body mass index [BMI] 40.0-44.9, adult; E78.5 Hyperlipidemia, unspecified; Z87.891 Personal history of nicotine dependence; Z79.82 Long term (current) use of aspirin
CPT/HCPCS: 27447; 12345; 36415; 51702; 64447; 73560; 80053; 85018; 85025; 97110; 97116; 97161; C1776; G0378; J0171; J0690; J1580; J1885; J2250; J2270; J2405; J2704; J2795; J3010; J7030

== ENCOUNTER 2020-07-22 10:59 | Outpatient (CLI) | payer OTHER, SELFPAY | END 2020-07-22 11:00 | disposition home or self-care (01) | LOC: SPT 11:02 | PROVIDERS: PCP Internal Medicine; Visit Provider Orthopaedic Surgery | DX: Z47.1 Aftercare following joint replacement surgery (principal); Z96.651 Presence of right artificial knee joint | CPT/HCPCS: 97760; L1830 ==

== ENCOUNTER → 2020-08-30 12:57 | Outpatient (BNVA) | payer OTHER, SELFPAY | PROVIDERS: PCP Internal Medicine; Visit Provider Orthopaedic Surgery | DX: Z48.89 Encounter for other specified surgical aftercare (principal); Z96.651 Presence of right artificial knee joint | CPT/HCPCS: 73560; 73565 ==

== ENCOUNTER 2021-08-10 12:57 | Outpatient (CLI) | payer OTHER, SELFPAY ==
--- NOTE | 2021-08-10 13:00 | USCV_ITS ---
Reggie Smith Age: 71 Gender: M : 1950 Exam Date: 08/10/2021 13:29 Ordering Phys: Albert Friedman DO Technologist: Afshin Isaac Exam Location: [facility] – [place] Indication: calcifications on ct Risk Factors: None Previous Vascular Surgery: Right Brachial BP: / Left Brachial BP: / Right Left Velocity (cm/s) Spectral Plaque Velocity (cm/s) Spectral Plaque Syst/Diast Broadening Syst/Diast Broadening 57.50/ 19.20 Prox CCA 42.50 / 13.20 49.70/ 19.30 Mid CCA 59.60 / 19.20 49.00/ 14.80 Hetro Distal CCA 51.80 / 17.70 Hetro 39.30/ 11.90 Hetro Prox ICA 28.40 / 10.60 Hetro 43.00/ 13.40 Hetro Mid ICA 41.60 / 13.60 Hetro 54.90/ 18.50 Distal ICA 56.80 / 23.50 142.00 ECA 96.20 0.96 ICA/CCA 0.95 Antegrade Vertebral Antegrade 46.00/ 11.50 cm/s 40.70/ 12.30 cm/s Tri Subclavian Tri 53.50 76.50 CONCLUSIONS Right ICA stenosis <50%. Left ICA stenosis <50%. Mild/Moderate atheromatous plaque right carotid bulb/ICA and CCA. Mild/Moderate atheromatous plaque left carotid bulb/ICA and CCA. Normal antegrade Doppler flow noted in the right vertebral artery. Normal antegrade Doppler flow noted in the left vertebral artery. Severiano Wright MD (Electronically Signed) Final Date: 11 August 2021 12:26 S
== END 2021-08-10 12:58 | disposition home or self-care (01) ==
LOC: RAD 13:00
PROVIDERS: PCP Internal Medicine; Visit Provider Emergency Medicine Emergency Medical Services
DX: I65.23 Occlusion and stenosis of bilateral carotid arteries (principal)
CPT/HCPCS: 93880

== ENCOUNTER 2021-08-11 14:37 | Outpatient (CLI) | payer OTHER, SELFPAY ==
--- NOTE | 2021-08-11 14:44 | MR_ITS ---
WS: [id number] MRI CERVICAL SPINE NONCONTRAST HISTORY: CERVICALGIA COMPARISON: None available. Technique: Multiplanar, multisequence noncontrast imaging of the cervical spine. C5 anterolisthesis by 3 mm. The remaining cervical vertebra are normally aligned. Mild disc space spike rowing and desiccation. No fractures. Signal within the cervical cord is normal. Visualized posterior fossa is unremarkable. Craniocervical junction, C1 and C2 relationship, odontoid process and soft tissues are normal. Increased T2 signal in the articular facets on the RIGHT of C2 and C3 with fluid in the facet joint. C2-C3: Normal. C3-C4: Mild osteophytic ridging. Moderate to large RIGHT foraminal disc osteophyte complex encroachin g upon the nerve roots with severe RIGHT foraminal stenosis. Mild stenosis on the LEFT. There is also slight deformity of the RIGHT lateral thecal sac at the disc osteophyte complex. C4-C5: Mild osteophytic ridging with small disc osteophyte complexes resulting in mild to moderate bi lateral foraminal stenosis. Mild facet joint arthritis. C5-C6: Mild osteophytic ridging without significant stenosis. C6-C7: Mild osteophytic ridging and facet arthritis. Mild narrowing of the LEFT foramen. No significa nt stenosis. Mild facet arthritis. C7-T1: Mild encroachment into the thecal sac by ligamentum flavum hypertrophy and facet disease. Ther e is very slight narrowing and encroachment into the thecal sac and mild foraminal narrowing. No high -grade stenosis. Paraspinal soft tissue are normal. MR/MR cervical spin wo con* [id number] IMPRESSION: 1. Moderate to large RIGHT foraminal disc osteophyte complex at C3-4 encroachi ng and displacing the RIGHT lateral thecal sac and severe RIGHT foraminal steno sis. 2. Facet joint arthritis with marrow edema in the RIGHT C2 and C3 articular fa cets and fluid in the joint. 3. Mild LEFT foraminal stenosis at C3-4. 4. Multiple moderate bilateral foraminal stenosis at C4-5 due to disc and oste ophyte and facet disease. 5. Mild LEFT foraminal stenosis at C6-7. 6. Mild central and bilateral foraminal stenosis at C7-T1.
== END 2021-08-11 14:38 | disposition home or self-care (01) ==
PROVIDERS: PCP Internal Medicine; Visit Provider Emergency Medicine Emergency Medical Services
DX: M25.78 Osteophyte, vertebrae (principal); M48.02 Spinal stenosis, cervical region; M48.03 Spinal stenosis, cervicothoracic region
CPT/HCPCS: 72141

== ENCOUNTER → 2021-09-11 09:00 | Outpatient (BNVA) | payer OTHER, SELFPAY | PROVIDERS: PCP Internal Medicine; Visit Provider Specialist | DX: G62.9 Polyneuropathy, unspecified (principal); Z87.891 Personal history of nicotine dependence | CPT/HCPCS: 99204 ==

== ENCOUNTER → 2021-12-06 12:49 | Outpatient (BNVA) | payer OTHER, SELFPAY | PROVIDERS: PCP Internal Medicine; Referring Provider Specialist; Visit Provider Specialist | DX: G62.89 Other specified polyneuropathies (principal); G56.03 Carpal tunnel syndrome, bilateral upper limbs; G56.23 Lesion of ulnar nerve, bilateral upper limbs | CPT/HCPCS: 95913 ==

== ENCOUNTER → 2022-03-14 07:51 | Outpatient (BNVA) | payer OTHER, SELFPAY | PROVIDERS: PCP Internal Medicine; Referring Provider Emergency Medicine Emergency Medical Services; Visit Provider Specialist | DX: G56.03 Carpal tunnel syndrome, bilateral upper limbs (principal); M18.0 Bilateral primary osteoarthritis of first carpometacarpal joints; G56.23 Lesion of ulnar nerve, bilateral upper limbs | CPT/HCPCS: 73110; 99204 ==

== ENCOUNTER → 2022-04-18 09:34 | Outpatient (BNVA) | payer OTHER, SELFPAY | PROVIDERS: PCP Emergency Medicine Emergency Medical Services; Visit Provider Specialist | DX: G56.03 Carpal tunnel syndrome, bilateral upper limbs (principal); G56.23 Lesion of ulnar nerve, bilateral upper limbs | CPT/HCPCS: 99213 ==

== ENCOUNTER → 2022-07-30 08:27 | Outpatient (BNVA) | payer OTHER, SELFPAY | PROVIDERS: PCP Emergency Medicine Emergency Medical Services; Visit Provider Podiatrist Foot & Ankle Surgery | DX: M19.071 Primary osteoarthritis, right ankle and foot (principal); M19.072 Primary osteoarthritis, left ankle and foot; G62.9 Polyneuropathy, unspecified | CPT/HCPCS: 99214 ==

== ENCOUNTER → 2022-11-12 10:04 | Outpatient (BNVA) | payer OTHER, SELFPAY | PROVIDERS: PCP Emergency Medicine Emergency Medical Services; Visit Provider Podiatrist Foot & Ankle Surgery | DX: M19.071 Primary osteoarthritis, right ankle and foot (principal); G62.9 Polyneuropathy, unspecified; M19.072 Primary osteoarthritis, left ankle and foot | CPT/HCPCS: 99213 ==

== ENCOUNTER 2023-01-03 07:54 | Outpatient (CLI) | payer OTHER, SELFPAY ==
--- NOTE | 2023-01-03 08:02 | USCV_ITS ---
Reggie Smith Age: 72 Gender: M : 1950 Exam Date: 01/03/2023 08:24 Ordering Phys: Albert Friedman DO Technologist: Exam Location: [facility] [place] Indication: screening HISTORY: Diameter (cm) AP x Transverse x Length Velocity (cm/s) Waveform Prox Aorta: 2.13 x 2.06 x 42.40 Biphasic Mid Aorta: 2.10 x 2.19 x 36.40 Biphasic Distal Aorta: 2.00 x 2.11 x 51.90 Monophasic Right Iliac Prox: 1.51 x 1.39 x 84.70 Biphasic Left Iliac Prox: 0.77 x 1.06 x 50.70 Monophasic Stent Prox Landing x x Aneurysmal Sac Max x x Lt Lat Sac Dim Rt Lat Sac Dim Stent Dist Landing x x Right Iliac Stent x x Left Iliac Stent x x Right Renal Art Left Renal Art FINDINGS: CONCLUSIONS No evidence of abdominal aortic or bilateral iliac aneurysm. Mild atheromatous disease in the abdominal aorta and iliac arteries Severiano Wright MD (Electronically Signed) Final Date: 03 January 2023 14:10 S
== END 2023-01-03 07:55 | disposition home or self-care (01) ==
PROVIDERS: PCP Emergency Medicine Emergency Medical Services; Visit Provider Emergency Medicine Emergency Medical Services
DX: Z13.6 Encounter for screening for cardiovascular disorders (principal); I70.0 Atherosclerosis of aorta; I70.8 Atherosclerosis of other arteries; F17.200 Nicotine dependence, unspecified, uncomplicated
CPT/HCPCS: 76706

== ENCOUNTER 2023-10-25 09:55 | Outpatient (CLI) | payer OTHER, SELFPAY ==
--- NOTE | 2023-10-25 10:00 | USCV_ITS ---
Reggie Smith Age: 73 Gender: M : 1950 Exam Date: 10/25/2023 10:07 Ordering Phys: Natalie Mixon APRN Technologist: Exam Location: [facility] – [place]_ Indication: LE Pain RIGHT LEFT Brachial 116.00 mmHg Brachial 117.00 mmHg Pressure (mmHg) Waveform Pressure (mmHg) Waveform 110.00 NUT SHELLER 110.00 DPA 0.94 Ankle/Brachial Index 123.00 Pre-Exercise Toe Pressure 122.00 1.05 Pre-Exercise Toe/Brachial Index 1.04 FINDINGS LT NUT SHELLER AND DPA unattainable so ABIs not calculated. Resting MARIKA of 0.94 on the right side with a TBI of 1.05. MARIKA could not be performed on the left side The left TBI was 1.04 CONCLUSIONS 1. Normal resting TBIs bilaterally 2. Normal resting MARIKA on the right side Possibly no significant arterial obstruction, based on the above findings Dr Benjamin Tavarez MD [facility] (Electronically Signed) Final Date: 25 Oct 2023 20:12 S
== END 2023-10-25 09:56 | disposition home or self-care (01) ==
LOC: RAD 09:56
PROVIDERS: PCP Emergency Medicine Emergency Medical Services; Visit Provider Nurse Practitioner Family
DX: I73.9 Peripheral vascular disease, unspecified (principal)
CPT/HCPCS: 93922

== ENCOUNTER → 2023-11-11 09:23 | Outpatient (BNVA) | payer OTHER, SELFPAY | PROVIDERS: PCP Emergency Medicine Emergency Medical Services; Visit Provider Podiatrist Foot & Ankle Surgery | DX: M19.071 Primary osteoarthritis, right ankle and foot; M19.072 Primary osteoarthritis, left ankle and foot; G62.9 Polyneuropathy, unspecified | CPT/HCPCS: 99213 ==

== ENCOUNTER 2023-12-25 07:19 | Outpatient (CLI) | payer OTHER, SELFPAY ==
--- NOTE | 2023-12-25 08:00 | USCV_ITS ---
Reggie Smith Age: 73 Gender: M : 1950 Exam Date: 12/25/2023 07:54 Ordering Phys: Sabrina Winters APRN Technologist: TIKA Exam Location: [facility] [place] Indication: AAA SCREENING HISTORY: Diameter (cm) AP x Transverse x Length Velocity (cm/s) Waveform Prox Aorta: 2.60 x 2.70 x 34.50 Triphasic Mid Aorta: 2.80 x 2.50 x 44.50 Triphasic Distal Aorta: 2.90 x 2.70 x 42.30 Triphasic Right Iliac Prox: 1.20 x 1.00 x 44.50 Triphasic Left Iliac Prox: 1.10 x 1.10 x 82.20 Triphasic Stent Prox Landing x x Aneurysmal Sac Max x x Lt Lat Sac Dim Rt Lat Sac Dim Stent Dist Landing x x Right Iliac Stent x x Left Iliac Stent x x Right Renal Art Left Renal Art FINDINGS: CONCLUSIONS Slightly aneurysmal abdominal aorta measures 2.9 x 2.7cm in maximum dimension. Mild atheromatous disease. Normal common iliac arteries. Severiano Wright MD (Electronically Signed) Final Date: 26 December 2023 10:12 S
== END 2023-12-25 07:20 | disposition home or self-care (01) ==
PROVIDERS: PCP Emergency Medicine Emergency Medical Services; Visit Provider Nurse Practitioner Family
DX: I71.40 Abdominal aortic aneurysm, without rupture, unspecified (principal)
CPT/HCPCS: 76706

== ENCOUNTER → 2024-10-26 09:28 | Outpatient (BNVA) | payer OTHER, SELFPAY | PROVIDERS: PCP Emergency Medicine Emergency Medical Services; Visit Provider Podiatrist Foot & Ankle Surgery | DX: M79.671 Pain in right foot (principal); M79.672 Pain in left foot; M19.071 Primary osteoarthritis, right ankle and foot; M19.072 Primary osteoarthritis, left ankle and foot; G62.9 Polyneuropathy, unspecified; R60.0 Localized edema | CPT/HCPCS: 99213 ==

== ENCOUNTER → 2025-05-06 09:15 | Outpatient (BNVA) | payer OTHER, SELFPAY | PROVIDERS: PCP Emergency Medicine Emergency Medical Services; Visit Provider Orthopaedic Surgery | DX: M25.512 Pain in left shoulder (principal); M75.102 Unspecified rotator cuff tear or rupture of left shoulder, not specified as traumatic; M12.812 Other specific arthropathies, not elsewhere classified, left shoulder | CPT/HCPCS: 73030; 99204 ==

== ENCOUNTER 2025-05-21 08:23 | Outpatient (CLI) | payer OTHER, SELFPAY ==
--- NOTE | 2025-05-21 08:45 | MRR_ITS ---
PROCEDURE INFORMATION: Exam: MR Left Upper Extremity Joint Without Contrast; Shoulder Exam date and time: 05/21/2025 8:47 AM Age: 74 years old Clinical indication: Injury or trauma; Sprain or strain; Injury date: 6 weeks ago; Injury details: Lifting injury to the left shoulder x 6 weeks/limited rom and shoulder pain; Additional info: Left shoulder pain, possible rotator cuff tear TECHNIQUE: Imaging protocol: Magnetic resonance imaging of the left upper extremity without contrast. Exam focused on the shoulder. COMPARISON: CR XR shoulder LT min 2V* [id number] 05/06/2025 9:19 AM FINDINGS: There is severe, diffuse rotator cuff tendinopathy. There is partial-thickness articular and bursal surface tearing and delamination along the distal supraspinatus and infraspinatus tendons, becoming full-thickness, partial width at the footprint. There is partial-thickness undersurface tearing along the distal superior subscapularis tendon fibers. There is a small amount of loculated fluid and synovitis in the subacromial/subdeltoid bursa. There is mild tendinopathy and partial-thickness tearing of the intra-articular biceps tendon with a small amount of loculated fluid in the tendon sheath. The biceps anchor is intact. There is [id number] glenohumeral osteoarthrosis. Evaluation of the labrum is suboptimal without intra-articular contrast. Circumferential labral tearing is likely chronic/degenerative in nature. No definite acute labral tear is identified. There is subcortical cystic change in the humeral head. Bone marrow signal is otherwise normal. There is no evidence of acute fracture or dislocation. Alignment is anatomic. There are mild degenerative changes of the acromioclavicular joint. There is a moderate-sized, mildly complex glenohumeral joint effusion with evidence of synovitis. MR/MR shoulder LT wo con* [id number] IMPRESSION: 1. Partial-thickness articular and bursal surface tearing and delamination along the distal supraspinatus and infraspinatus tendons, becoming full-thickness, partial width at the footprint. 2. Partial-thickness undersurface tearing along the distal superior subscapularis tendon fibers. 3. Subacromial/subdeltoid bursitis. 4. Mild tendinopathy and partial-thickness tearing of the intra-articular biceps tendon with a small amount of loculated fluid in the tendon sheath. 5. Mild glenohumeral and acromioclavicular osteoarthrosis. 6. Moderate-sized, mildly complex glenohumeral joint effusion with evidence of synovitis. 7. Additional findings, as above.
== END 2025-05-21 08:24 | disposition home or self-care (01) ==
LOC: RAD 08:24
PROVIDERS: PCP Emergency Medicine Emergency Medical Services; Visit Provider Orthopaedic Surgery
DX: M25.512 Pain in left shoulder (principal); S46.012A Strain of muscle(s) and tendon(s) of the rotator cuff of left shoulder, initial encounter; S43.432A Superior glenoid labrum lesion of left shoulder, initial encounter; X58.XXXA Exposure to other specified factors, initial encounter; M75.52 Bursitis of left shoulder; M75.22 Bicipital tendinitis, left shoulder; M19.012 Primary osteoarthritis, left shoulder; M25.412 Effusion, left shoulder
CPT/HCPCS: 73221

== ENCOUNTER → 2025-05-25 10:08 | Outpatient (BNVA) | payer OTHER, SELFPAY | PROVIDERS: PCP Emergency Medicine Emergency Medical Services; Visit Provider Orthopaedic Surgery | DX: S46.812A Strain of other muscles, fascia and tendons at shoulder and upper arm level, left arm, initial encounter (principal); S46.212A Strain of muscle, fascia and tendon of other parts of biceps, left arm, initial encounter; X58.XXXA Exposure to other specified factors, initial encounter | CPT/HCPCS: 99213 ==